=== PATIENT | female | born 1950 | race Caucasian/White ===

== ENCOUNTER 2019-02-18 15:24 | Emergency (ER) | payer MEDICARE, OTHER ==
[2019-02-18 15:39] VITALS: BP 133/67
--- NOTE | 2019-02-18 16:17 | UC ---
Complaint Female HPI - HPI Summary HPI Summary: pt started this am with dysuria, has had several UTIs in past and feels this is a UTI now. dull intermittent lower abd pain, burning and frequency has had no meds so far - History Of Current Complaint Chief Complaint: UCAbdominalPain Stated Complaint: PAIN IN ABD Time Seen by Provider: 02/18/19 15:35 Hx Obtained From: Patient ?: No Onset/Duration: Sudden Onset Timing: Intermittent Severity Initially: Mild Severity Currently: Moderate Pain Intensity: 7 Character: Burning Aggravating Factor(s): Urination Alleviating Factor(s): Nothing Associated Signs And Symptoms: Positive: Negative. Negative: Fever, Back Pain, Vaginal Bleeding/Discharge Related Hx: Similar Episode/Dx as: - UTI - Allergies/Home Medications Allergies/Adverse Reactions: Allergies Allergy/AdvReac Type Severity Reaction Status Date / Time No Known Allergies Allergy Verified 02/18/19 15:39 Home Medications: Home Medications Escitalopram * [Lexapro 5 mg (NF)] 5 mg PO DAILY 02/18/19 [History Confirmed ] Eszopiclone [Lunesta] 3 mg PO 02/18/19 [History] Gabapentin CAP(*) [Neurontin 100 mg CAP(*)] 100 mg PO TID 02/18/19 [History Confirmed 02/18/19] Montelukast Sodium TAB* [Singulair 10 MG TAB*] 10 mg PO DAILY 02/18/19 [History Confirmed 02/18/19] Rabeprazole Sodium [Aciphex] 20 mg PO BEDTIME 02/18/19 [History Confirmed ] clonazePAM TAB(*) [Klonopin TAB(*)] 0.5 mg PO BEDTIME PRN 02/18/19 [History Confirmed 02/18/19] PMH/Surg Hx/FS Hx/Imm Hx Previously Healthy: Yes Respiratory History: Other - seasonal allergy GI/ History: Gastroesophageal Reflux Psychological History: Anxiety, Depression - Surgical History Surgical History: Yes Surgery Procedure, Year, and Place: gastric bypass 2016, bilat knees replaced 2017 - Family History Known Family History: Positive: Respiratory Disease - Social History Occupation: Retired Lives: With Family Alcohol Use: Rare Substance Use Type: None Smoking Status (MU): Never Smoked Tobacco Review of Systems All Other Systems Reviewed And Are Negative: Yes Constitutional: Positive: Negative. Negative: Fever, Chills Skin: Positive: Negative Respiratory: Positive: Negative Cardiovascular: Positive: Negative Genitourinary: Positive: Dysuria, Frequency, Urgency. Negative: Hematuria Neurological: Positive: Negative Psychological: Positive: Negative Is Patient Immunocompromised?: No Physical Exam Triage Information Reviewed: Yes Appearance: Well-Appearing, No Pain Distress, Well-Nourished Vital Signs: Initial Vital Signs Temp 97.2 F 02/18/19 15:33 Pulse 59 02/18/19 15:33 Resp 18 02/18/19 15:33 BP 133/67 02/18/19 15:33 Pulse Ox 100 02/18/19 15:33 Vital Signs Reviewed: Yes Respiratory Exam: Normal Respiratory: Positive: Lungs clear Cardiovascular Exam: Normal Cardiovascular: Positive: RRR Abdominal Exam: Normal Abdomen Description: Positive: Nontender, Soft. Negative: CVA Tenderness (R), CVA Tenderness (L) Psychological Exam: Normal Skin Exam: Normal Complaint Female Dx - Differential Dx/Diagnosis Differential Diagnosis/HQI/PQRI: Ureteral Stone, Urinary Tract Infection Provider Diagnosis: UTI (urinary tract infection) Discharge - Sign-Out/Discharge Documenting (check all that apply): Patient Departure All imaging exams completed and their final reports reviewed: No Studies - Discharge Plan Condition: Good Disposition: HOME Prescriptions: Ciprofloxacin TAB* [Cipro 500 MG TAB*] 500 mg PO BID #10 tab Patient Education Materials: Urinary Tract Infection in Women (ED) Referrals: No Primary Care Phys,NOPCP [Primary Care Provider] - Additional Instructions: drink plenty of fluids start cirpo as directed return if you experience worsening symptoms, fever or back pain - Billing Disposition and Condition Condition: GOOD Disposition: Home - Attestation Statements Provider Attestation: I was available for consult. This patient was seen by the [facility]. The patient was not presented to, seen by, or examined by me. -Marine
== END 2019-02-18 16:25 | disposition home or self-care (01) ==
LOC: UCEAST 15:24
DX: N39.0 Urinary tract infection, site not specified (principal); K21.9 Gastro-esophageal reflux disease without esophagitis; F41.9 Anxiety disorder, unspecified; F32.9 Major depressive disorder, single episode, unspecified; Z87.440 Personal history of urinary (tract) infections; Z98.84 Bariatric surgery status
CPT/HCPCS: 81003; 87077; 87086; 87186; 99202; G0463